=== PATIENT | female | born 1950 | race Caucasian/White ===

== ENCOUNTER 2023-05-01 13:55 | Emergency (ER) | payer MEDICARE, OTHER ==
[~2023-05-01] VITALS: Ht 162.6 cm; Wt 97.5 kg
[2023-05-01 14:58] LABS: BASOPHILS # (AUTO) 0.1 K/uL (0.0-0.2); EOSINOPHILS % (AUTO) 0.3 % (0.0-6.0); HEMATOCRIT 40 % (33-45); HEMOGLOBIN 13.1 g/dL (11.5-14.8); LYMPHOCYTES # (AUTO) 1.2 K/uL (0.8-4.8); LYMPHOCYTES % (AUTO) 19.5 % (20.0-44.0); MEAN CORPUSCULAR HEMOGLOBIN 29 PG (26.0-33.0); MEAN CORPUSCULAR HGB CONC 33 g/dl (31.0-36.0); MEAN CORPUSCULAR VOLUME 87 fL (82-100); MONOCYTES # (AUTO) 0.5 K/uL (0.1-1.30); MONOCYTES % (AUTO) 8.3 % (2.0-12.0); NEUTROPHILS # (AUTO) 4.3 K/uL (1.8-8.9); NEUTROPHILS % (AUTO) 70.9 % (43.0-81.0); PLATELET COUNT (AUTO) 221 K/uL (150-450); RED CELL DISTRIBUTION WIDTH 13.7 % (11.5-15.0); WHITE BLOOD COUNT (AUTO) 6.1 K/uL (4.3-11.0)
[2023-05-01] MEDS ORDERED: PANT40TA2 PO (15:11)
[2023-05-01] MEDS ORDERED: GABA-532 PO (15:11)
[2023-05-01] MEDS ORDERED: MECL-159 PO (15:11)
[2023-05-01] MEDS ORDERED: GLIP5TAB13 PO (15:11)
[2023-05-01] MEDS ORDERED: CLOP75TA15 PO (15:11)
[2023-05-01] MEDS ORDERED: CARV12.5 PO (15:11)
[2023-05-01] MEDS ORDERED: HYDR12.55 PO (15:11)
[2023-05-01] MEDS ORDERED: ASPI-1169 PO (15:11)
[2023-05-01] MEDS ORDERED: VALS80TA2 PO (15:11)
[2023-05-01] MEDS ORDERED: ERGO500040 PO (15:11)
[2023-05-01 15:21] LABS: ALANINE AMINOTRANSFERASE 33 U/L (12-78); ALBUMIN 3.5 g/dL (3.4-5.0); ALKALINE PHOSPHATASE 86 U/L (46-116); ASPARTATE AMINOTRANSFERASE 23 U/L (15-37); BILIRUBIN,DIRECT 0.1 mg/dL (0.0-0.2); BILIRUBIN,TOTAL 0.4 mg/dL (0.2-1.0); CALCIUM, SERUM 9.3 mg/dL (8.5-10.1); CARBON DIOXIDE 28 mmol/L (21-32); CHLORIDE 103 mmol/L (98-107); CREATININE 0.7 mg/dL (0.6-1.3); GLUCOSE 188 mg/dL (74-106); POTASSIUM 4.2 mmol/L (3.5-5.1); SODIUM SERUM 139 mmol/L (136-145); UREA NITROGEN, BLOOD 15 mg/dL (7-18)
[2023-05-01] MEDS ORDERED: EVOL140P3 SQ (15:22)
[2023-05-01] MEDS ORDERED: METOPROLOL TARTRATE INJ 5 MG/5 ML AMPUL IV ONE ×3 (16:00→18:30)
[2023-05-01] MEDS ORDERED: APIXABAN 5 MG TABLET ONE (16:20)
[2023-05-01] MEDS ORDERED: METOPROLOL TARTRATE INJ 5 MG/5 ML AMPUL ONE ×3 (16:20→18:30)
[2023-05-01] MEDS: APIXABAN 5 MG TABLET PO SCH ×2 (16:24→16:32)
[2023-05-01 16:58] LABS: APPEARANCE,URINE SLIGHTLY CLOUDY (CLEAR); BILIRUBIN,URINE NEGATIVE (NEGATIVE); BLOOD, URINE NEGATIVE Ery/uL (NEGATIVE); COLOR,URINE YELLOW (YELLOW); KETONES,URINE NEGATIVE (NEGATIVE); LEUKOCYTE ESTERASE ,URINE 1+ (NEGATIVE); NITRITE, URINE NEGATIVE (NEGATIVE); PH,URINE 5.5 (5.0-8.0); PROTEIN,URINE NEGATIVE (NEGATIVE); UGLUCOSE NEGATIVE (NEGATIVE); UROBILINOGEN,URINE 0.2 EU/dL (0.2)
[2023-05-01 17:03] LABS: ADD URINE CULTURE YES; BACTERIA,URINE 2+ /HPF (None Seen); RBC,URINE 0-2 /HPF (0-2)
[2023-05-01] MEDS ORDERED: DILTIAZEM HCL 50 MG IV IV ONE (19:00)
[2023-05-01] MEDS ORDERED: DILTIAZEM HCL 25 MG IV ONE (19:19)
[2023-05-01] MEDS ORDERED: CEPH500T PO (19:37)
[2023-05-01] MEDS ORDERED: APIX5TAB PO (19:37)
[2023-05-01] MEDS ORDERED: DILTIAZEM HCL 30 MG TABLET ONE (19:44)
[2023-05-01] MEDS ORDERED: DILTIAZEM HCL 30 MG TABLET PO ONE (20:00)
[2023-05-01 20:05] VITALS: BP 129/78; TEMP 98.4; O2SAT 98
== END 2023-05-01 20:05 | disposition home or self-care (01) ==
LOC: ER 13:58
DX: I48.91 Unspecified atrial fibrillation (principal); N39.0 Urinary tract infection, site not specified
CPT/HCPCS: 99285; 96374; 71045; 96375; 93005 ×3; 96376; 85025; 80048; 87086; 80076; 81001; 36415; 84484; J3490 ×4